=== PATIENT | female | born 1975 | race Caucasian/White ===

== ENCOUNTER 2016-04-25 15:17 | Emergency (ER) | payer BC, OTHER ==
[2016-04-25 15:36] VITALS: BP 102/60
--- NOTE | 2016-04-25 15:39 | UC ---
Throat Pain/Nasal Daniele HPI - HPI Summary HPI Summary: The patient comes in today for: 1. Sore throat: Onset: 2 days ago. Palliative/provocative: Swallowing and eating makes it worse. Quality: Raw Region: Posterior pharynx. Severity: 10/10, but she appears more like 4/10 Time: Constant. Associated symptoms: Mononucleosis: Never had. Fevers: None. Rhinitis: Clear Cough: "Some" * - History of Current Complaint Chief Complaint: UCGeneralIllness Stated Complaint: SORE THROAT Time Seen by Provider: 04/25/16 15:30 Hx Obtained From: Patient Hx Last Menstrual Period: 04/20/16 ?: No - Allergies/Home Medications Allergies/Adverse Reactions: Allergies Allergy/AdvReac Type Severity Reaction Status Date / Time No Known Allergies Allergy Verified 04/25/16 15:26 Home Medications: Home Medications Ibuprofen TAB* [Advil TAB*] 200 mg PO Q6H PRN 04/25/16 [History Confirmed ] PMH/Surg Hx/FS Hx/Imm Hx Previously Healthy: Yes Endocrine History Of: Denies: Diabetes, Thyroid Disease, Hyperthyroidism, Hypothyroidism, Dyslipidemia Cardiovascular History Of: Denies: Cardiac Disorders, Hypertension, Pacemaker/ICD, Myocardial Infarction , Congestive Heart Failure, Atrial Fibrillation, Deep Vein Thrombosis, Bleeding Disorders Respiratory History Of: Denies: COPD, Asthma, Bronchitis, Pneumonia, Pulmonary Embolism GI/ History Of: Denies: Gastroesophageal Reflux, Ulcer, Gastrointestinal Bleed, Gall Bladder Disease, Kidney Stones, Diverticulitis, Renal Disease, Urosepsis Neurological History Of: Denies: TIA, CVA, Dementia, Seizures, Migraine Psychological History Of: Denies: Anxiety, Depression, Bipolar Disorder, Schizophrenia, Post Traumatic Stress Disorder Cancer History Of: Denies: Lung Cancer, Colorectal Cancer, Breast Cancer, Prostate Cancer, Cervical Cancer Other History Of: Negative For: HIV, Hepatitis B, Hepatitis C, Anticoagulant Therapy - Surgical History Surgical History: None - Family History Known Family History: Positive: Unknown - She is adopted. - Social History Occupation: Employed Full-time Lives: With Family Alcohol Use: Rare Substance Use Type: None Smoking Status (MU): Never Smoked Tobacco Review of Systems Constitutional: Negative Skin: Negative Eyes: Negative ENT: Sore Throat, Nasal Discharge Respiratory: Negative Cardiovascular: Negative Gastrointestinal: Negative Genitourinary: Negative All Other Systems Reviewed And Are Negative: Yes Physical Exam Triage Information Reviewed: Yes Appearance: Well-Appearing, No Pain Distress, Well-Nourished Vital Signs: Initial Vital Signs Temp 99.4 F 04/25/16 15:22 Pulse 84 04/25/16 15:22 Resp 16 04/25/16 15:22 BP 102/60 04/25/16 15:22 Pulse Ox 99 04/25/16 15:22 Vital Signs Reviewed: Yes Eyes: Positive: Conjunctiva Clear. Negative: Discharge ENT: Positive: Hearing grossly normal. Negative: Pharyngeal erythema, Nasal congestion, Nasal drainage, TM bulging, TM dull, TM red, Tonsillar swelling, Tonsillar exudate Dental: Negative: Gross Decay/Caries @, Dental Fracture @ Neck: Positive: Supple, Nontender, No Lymphadenopathy. Negative: Nuchal Rigidity Respiratory: Positive: Chest non-tender, Lungs clear, No respiratory distress, No accessory muscle use. Negative: Crackles, Wheezing Cardiovascular: Positive: RRR, No Murmur Abdomen Description: Positive: Nontender, No Organomegaly, Soft. Negative: Distended, Guarding Musculoskeletal: Positive: Strength Intact, ROM Intact, No Edema Neurological: Positive: Alert, Muscle Tone Normal Psychological: Positive: Age Appropriate Behavior, Consolable Skin: Negative: rashes, breakdown Diagnostics - Laboratory Diagnostic Studies Completed/Ordered: Strep test: (-) Throat Pain/Nasal Course/Dx - Course Course Of Treatment: Patient was given viscous lidocaine. She did not want a prescription of this--she just wants to take [id number] medications. - Differential Dx/Diagnosis Provider Diagnoses: Viral pharyngitis Discharge - Discharge Plan Condition: Stable Disposition: HOME Patient Education Materials: Pharyngitis (ED) Referrals: Claudette Little MD [Medical Doctor] - 1 Week (Please see your primary care provider in about a week to see how well you are doing. If you get worse, please be seen sooner.) Additional Instructions: Please use the [id number] medication as you need. If you get worse, please be seen sooner.
[2016-04-25] MEDS ORDERED: Lidocaine 2% VISCOUS* 15 ML UDC PO ONE (15:44)
== END 2016-04-25 16:27 | disposition home or self-care (01) ==
LOC: UCCORT 15:17
DX: J02.9 Acute pharyngitis, unspecified (principal)
CPT/HCPCS: 87651; 99202; G0463